=== PATIENT | female | born 1985 | race Caucasian/White ===

== ENCOUNTER 2016-10-29 13:44 | Emergency (ER) | payer OTHER ==
[~2016-10-29] VITALS: Ht 157.5 cm; Wt 72.5 kg
[~2016-10-29 13:44] MED LIST: BENTYL10 MG PO; BENTYL20 MG PO; BUPROPION XL150 MG PO; CELEBREX100 MG PO; CIPRO500 MG PO; DICLOFENAC SODI75 MG PO; DOXYCYCLINE HY100 MG PO; ENDOCET 5-3251 EACH PO; FLEXERIL10 MG PO; GLUCOPHAGE500 MG PO; KETOROLAC TROME10 MG PO; MACROBID100 MG PO; MOTRIN600 MG PO; MOTRIN800 MG PO; NAPROSYN500 MG PO; NOHOMEMEDS; PAROXETINE HCL10 MG PO; PERCOCET 5/31 TABLET PO; PRILOSEC40 MG PO; RELAFEN500 M1 PO; TOBRASOL5 ML LEFT EYE; TRAMADOL HCL50 MG PO; ULTRAM50 MG PO; VIBRAMYCIN100 MG PO; ZOFRAN ODT4 MG PO; ZOFRAN4 MG PO; ZYVOX600 MG PO
[2016-10-29 14:12] LABS: HEMATOCRIT 44.8 % (36.0-46.0); MCH 29.4 PG (29.0-34.0); MCV 89.1 FL (83-99); MEAN PLAT.VOLUME 9.6 uM^3 (9.5-12.4); PLATELET COUNT 305 K/uL (156-360); RBC DIS.WIDTH-CV 13.1 % (11.8-14.6); RBC DIS.WIDTH-SD 41.9 % (39-53); RED BLOOD COUNT 5.03 M/uL (3.80-5.20); WHITE BLOOD COUNT 10.3 K/uL (4.1-10.2)
[2016-10-29 14:22] LABS: CHLORIDE 109 mEq/L (99-109); POTASSIUM 4.2 mEq/L (3.7-5.4); SODIUM 142 mEq/L (136-147)
[2016-10-29 14:24] LABS: GLUCOSE 217 mg/dL (70-99)
[2016-10-29 14:26] LABS: ANION GAP 10 MEQ/L (2-14); TOTAL BILIRUBIN 0.3 mg/dL (0.0-1.0)
[2016-10-29 14:28] LABS: ALKALINE PHOSPHATASE 75 IU/L (3-129); GFR ESTIMATE (CALCULATED) > 59 mL/min/
[2016-10-29 14:29] LABS: UREA NITROGEN (BUN) 12 mg/dL (9-23)
[2016-10-29 14:36] LABS: QUANTITATIVE HCG < 4.0 MIU/ML
[2016-10-29] MEDS ORDERED: GABAPENTIN300 MG PO (15:32)
[2016-10-29] MEDS ORDERED: HYDROCODON-ACE1 EAC8 PO (15:33)
[2016-10-29 15:40] LABS: ADD MIUA? NO; BILIRUBIN NEGATIVE; BLOOD NEGATIVE; COLOR YELLOW ((YELLOW)); GLUCOSE (STRIP) >=1000; KETONES NEGATIVE; LEUKOCYTES NEGATIVE; NITRITE NEGATIVE; PROTEIN (STRIP) NEGATIVE; UCUL ADDED? NO; UROBILINOGEN 0.2 MG/DL (0.2-1.0)
[2016-10-29] MEDS ORDERED: INDOCIN25 MG PO (20:57)
[2016-10-29] MEDS ORDERED: ZOFRAN ODT4 MG PO (21:01)
[2016-10-29 21:09] VITALS: BP 112/79
[2016-10-30 13:27] LABS: CHLAMYDIA TRACHOMATIS NEGATIVE; NEISSERIA GONORRHOEAE NEGATIVE
== END 2016-10-29 21:13 | disposition home or self-care (01) ==
LOC: EME 13:44 → RME 13:44
PROVIDERS: Physician Assistant
DX: R10.2 Pelvic and perineal pain (principal); E11.65 Type 2 diabetes mellitus with hyperglycemia; G89.29 Other chronic pain; Z87.442 Personal history of urinary calculi; Z86.14 Personal history of Methicillin resistant Staphylococcus aureus infection; F17.200 Nicotine dependence, unspecified, uncomplicated
CPT/HCPCS: 74177; 76856; 80053; 81003; 84702; 85027; 87210; 87491; 87591; 99281; 99285; J0696; J1885; J2405; J3010; J7030

== ENCOUNTER 2017-04-10 20:04 | Emergency (ER) | payer OTHER ==
[~2017-04-10] VITALS: Ht 157.5 cm; Wt 72.3 kg
[~2017-04-10 20:04] MED LIST changes: +GABAPENTIN300 MG PO; +HYDROCODON-ACE1 EAC8 PO; +INDOCIN25 MG PO
[2017-04-10 20:57] LABS: HEMATOCRIT 43.1 % (36.0-46.0); MCH 27.5 PG (29.0-34.0); PLATELET COUNT 264 K/uL (156-360); RBC DIS.WIDTH-CV 14.1 % (11.8-14.6); RBC DIS.WIDTH-SD 44.8 % (39-53); RED BLOOD COUNT 5.01 M/uL (3.80-5.20); WHITE BLOOD COUNT 10.8 K/uL (4.1-10.2)
[2017-04-10 21:06] LABS: CHLORIDE 108 mEq/L (99-109); POTASSIUM 4.2 mEq/L (3.7-5.4); SODIUM 140 mEq/L (136-147)
[2017-04-10 21:08] LABS: GLUCOSE 167 mg/dL (70-99)
[2017-04-10 21:09] LABS: ANION GAP 8 MEQ/L (2-14)
[2017-04-10 21:12] LABS: GFR ESTIMATE (CALCULATED) > 59 mL/min/
[2017-04-10 21:13] LABS: UREA NITROGEN (BUN) 9 mg/dL (9-23)
[2017-04-10 21:47] LABS: QUANTITATIVE HCG < 4.0 MIU/ML
[2017-04-10 22:10] LABS: ADD MIUA? NO; BILIRUBIN NEGATIVE; BLOOD NEGATIVE; COLOR YELLOW ((YELLOW)); GLUCOSE (STRIP) NEGATIVE; KETONES NEGATIVE; LEUKOCYTES NEGATIVE; NITRITE NEGATIVE; PROTEIN (STRIP) NEGATIVE; UCUL ADDED? NO; UROBILINOGEN 0.2 MG/DL (0.2-1.0)
[2017-04-10] MEDS ORDERED: PERCOCET 5/31 TABLET PO (22:44)
[2017-04-10] MEDS ORDERED: ZOFRAN ODT4 MG PO (22:44)
[2017-04-10] MEDS ORDERED: MOTRIN600 MG PO (22:44)
[2017-04-10 22:53] VITALS: BP 124/70
== END 2017-04-10 22:55 | disposition home or self-care (01) ==
LOC: EME 20:04
DX: R10.9 Unspecified abdominal pain (principal); R11.0 Nausea; R68.83 Chills (without fever); Z87.442 Personal history of urinary calculi; F17.200 Nicotine dependence, unspecified, uncomplicated
CPT/HCPCS: 74176; 80048; 81003; 84702; 85027; 99281; 99285; J1200; J1885; J2270; J2405; J7030

== ENCOUNTER 2017-04-30 15:22 | Emergency (ER) | payer OTHER ==
[~2017-04-30] VITALS: Ht 157.5 cm; Wt 72.7 kg
[2017-04-30 15:59] LABS: ADD MIUA? NO; BILIRUBIN NEGATIVE; BLOOD NEGATIVE; COLOR STRAW ((YELLOW)); GLUCOSE (STRIP) NEGATIVE; KETONES NEGATIVE; LEUKOCYTES NEGATIVE; NITRITE NEGATIVE; PROTEIN (STRIP) NEGATIVE; UCUL ADDED? NO; UROBILINOGEN 0.2 MG/DL (0.2-1.0)
[2017-04-30 16:07] LABS: HEMATOCRIT 42.3 % (36.0-46.0); MCH 27.6 PG (29.0-34.0); MCHC 31.9 G/DL (30.0-36.0); MCV 86.3 FL (83-99); PLATELET COUNT 279 K/uL (156-360); RBC DIS.WIDTH-CV 13.9 % (11.8-14.6); WHITE BLOOD COUNT 14.2 K/uL (4.1-10.2)
[2017-04-30 16:17] LABS: CHLORIDE 106 mEq/L (99-109); SODIUM 142 mEq/L (136-147)
[2017-04-30 16:19] LABS: GLUCOSE 114 mg/dL (70-99)
[2017-04-30 16:21] LABS: ANION GAP 10 MEQ/L (2-14); TOTAL BILIRUBIN 0.3 mg/dL (0.0-1.0)
[2017-04-30 16:23] LABS: ALKALINE PHOSPHATASE 103 IU/L (3-129); GFR ESTIMATE (CALCULATED) > 59 mL/min/
[2017-04-30 16:24] LABS: UREA NITROGEN (BUN) 7 mg/dL (9-23)
[2017-04-30 16:26] LABS: LIPASE 15 U/L (1.0-51.0)
[2017-04-30 17:12] LABS: QUANTITATIVE HCG < 4.0 MIU/ML
[2017-04-30] MEDS ORDERED: NORCO 5/3251 TABLET PO (18:32)
[2017-04-30] MEDS ORDERED: BENTYL20 MG PO (18:32)
[2017-04-30 18:43] VITALS: BP 136/98
== END 2017-04-30 18:44 | disposition home or self-care (01) ==
LOC: EME 15:22
DX: R10.31 Right lower quadrant pain (principal); J02.9 Acute pharyngitis, unspecified; R11.0 Nausea; Z87.442 Personal history of urinary calculi; Z98.51 Tubal ligation status; Z86.14 Personal history of Methicillin resistant Staphylococcus aureus infection; F17.200 Nicotine dependence, unspecified, uncomplicated
CPT/HCPCS: 74177; 80053; 81003; 83690; 84702; 85027; 99281; 99284; J2270; J2405; J7040

== ENCOUNTER 2017-08-29 12:53 | Emergency (ER) | payer OTHER ==
[~2017-08-29] VITALS: Ht 157.5 cm; Wt 73.0 kg
[~2017-08-29 12:53] MED LIST changes: +NORCO 5/3251 TABLET PO
[2017-08-29 13:39] LABS: HEMATOCRIT 41.3 % (36.0-46.0); MCH 27.1 PG (29.0-34.0); MCHC 32.2 G/DL (30.0-36.0); MCV 84.1 FL (83-99); MEAN PLAT.VOLUME 9.8 uM^3 (9.5-12.4); PLATELET COUNT 286 K/uL (156-360); RBC DIS.WIDTH-CV 14.9 % (11.8-14.6); RBC DIS.WIDTH-SD 45.9 % (39-53); RED BLOOD COUNT 4.91 M/uL (3.80-5.20)
[2017-08-29 13:50] LABS: CHLORIDE 107 mEq/L (99-109); POTASSIUM 4.3 mEq/L (3.7-5.4); SODIUM 136 mEq/L (136-147)
[2017-08-29 13:53] LABS: GLUCOSE 259 mg/dL (70-99)
[2017-08-29 13:54] LABS: ANION GAP 9 MEQ/L (2-14)
[2017-08-29 13:55] LABS: TOTAL BILIRUBIN 0.2 mg/dL (0.0-1.0)
[2017-08-29 13:56] LABS: ALKALINE PHOSPHATASE 94 IU/L (3-129); GFR ESTIMATE (CALCULATED) > 59 mL/min/
[2017-08-29 13:58] LABS: UREA NITROGEN (BUN) 11 mg/dL (9-23)
[2017-08-29 14:00] LABS: LIPASE 30 U/L (1.0-51.0)
[2017-08-29 14:06] LABS: QUANTITATIVE HCG < 4.0 MIU/ML
[2017-08-29 14:57] LABS: ADD MIUA? YES; BILIRUBIN NEGATIVE; BLOOD NEGATIVE; COLOR YELLOW ((YELLOW)); GLUCOSE (STRIP) >=500; KETONES NEGATIVE; LEUKOCYTES MODERATE; NITRITE NEGATIVE; PROTEIN (STRIP) NEGATIVE; SPECIFIC GRAVITY 1.042 (1.000-1.030); UROBILINOGEN 0.2 MG/DL (0.2-1.0)
[2017-08-29 15:10] LABS: BACTERIA NONE SEEN /HPF; EPITHELIAL CELLS RARE /HPF; MUCUS TRACE /LPF; RED BLOOD CELLS 0-5 /HPF (0-5)
[2017-08-29] MEDS ORDERED: ZOFRAN ODT4 MG PO (15:27)
[2017-08-29] MEDS ORDERED: BENTYL10 MG PO (15:27)
[2017-08-29 15:35] VITALS: BP 133/84
== END 2017-08-29 15:50 | disposition home or self-care (01) ==
LOC: EME 12:53
PROVIDERS: Nurse Practitioner Family
DX: R10.11 Right upper quadrant pain (principal); R10.13 Epigastric pain; R19.7 Diarrhea, unspecified; R07.89 Other chest pain; F17.200 Nicotine dependence, unspecified, uncomplicated; E11.9 Type 2 diabetes mellitus without complications; F32.9 Major depressive disorder, single episode, unspecified; F41.9 Anxiety disorder, unspecified; Z86.19 Personal history of other infectious and parasitic diseases; Z87.442 Personal history of urinary calculi; Z86.14 Personal history of Methicillin resistant Staphylococcus aureus infection; Z88.1 Allergy status to other antibiotic agents; Z88.2 Allergy status to sulfonamides
CPT/HCPCS: 71020; 74177; 80053; 81003; 83690; 84702; 85027; 99281; 99285; J1885; J2405; J3010; J7030

== ENCOUNTER 2017-11-18 23:51 | Emergency (ER) | payer OTHER ==
[~2017-11-18] VITALS: Ht 157.5 cm; Wt 74.2 kg
[2017-11-19 00:22] LABS: APPEARANCE SL.HAZY ((CLEAR)); BILIRUBIN NEGATIVE; BLOOD NEGATIVE; COLOR YELLOW ((YELLOW)); GLUCOSE (STRIP) 50; KETONES 5; LEUKOCYTES TRACE; NITRITE NEGATIVE; PROTEIN (STRIP) NEGATIVE; SPECIFIC GRAVITY 1.028 (1.000-1.030); UROBILINOGEN 0.2 MG/DL (0.2-1.0)
[2017-11-19 00:26] LABS: BACTERIA NONE SEEN /HPF; EPITHELIAL CELLS 1+ /HPF; MUCUS TRACE /LPF; RED BLOOD CELLS 0-5 /HPF (0-5); UCUL ADDED? NO; WHITE BLOOD CELLS 0-5 /HPF (0-5)
[2017-11-19 01:08] LABS: HEMATOCRIT 39.3 % (36.0-46.0); HEMOGLOBIN 12.6 G/DL (11.9-15.5); MCH 26.9 PG (29.0-34.0); MCHC 32.1 G/DL (30.0-36.0); MCV 83.8 FL (83-99); PLATELET COUNT 289 K/uL (156-360); RBC DIS.WIDTH-CV 15.2 % (11.8-14.6); RBC DIS.WIDTH-SD 45.7 % (39-53); RED BLOOD COUNT 4.69 M/uL (3.80-5.20); WHITE BLOOD COUNT 12.6 K/uL (4.1-10.2)
[2017-11-19 01:21] LABS: ALBUMIN 4.1 g/dL (3.2-4.8)
[2017-11-19 01:22] LABS: CHLORIDE 109 mEq/L (99-109); POTASSIUM 4.3 mEq/L (3.7-5.4); SODIUM 138 mEq/L (136-147)
[2017-11-19 01:24] LABS: GLUCOSE 180 mg/dL (70-99); TOTAL PROTEIN 6.9 g/dL (6.4-8.3)
[2017-11-19 01:26] LABS: TOTAL BILIRUBIN 0.2 mg/dL (0.0-1.0)
[2017-11-19 01:27] LABS: ALKALINE PHOSPHATASE 93 IU/L (3-129)
[2017-11-19 01:28] LABS: CREATININE 0.9 mg/dL (0.6-1.3); GFR ESTIMATE (CALCULATED) > 59 mL/min/
[2017-11-19 01:29] LABS: AST (GOT) 13 IU/L (2-34); UREA NITROGEN (BUN) 13 mg/dL (9-23)
[2017-11-19 01:31] LABS: ALT (GPT) 10 IU/L (3-49)
[2017-11-19 01:37] LABS: QUANTITATIVE HCG < 4.0 MIU/ML
[2017-11-19] MEDS ORDERED: FLAGYL500 MG PO (04:10)
[2017-11-19] MEDS ORDERED: DOXYCYCLINE HY100 MG PO (05:55)
[2017-11-19 06:06] VITALS: BP 149/70
== END 2017-11-19 06:07 | disposition home or self-care (01) ==
LOC: EME 23:51
DX: R10.11 Right upper quadrant pain (principal); R30.0 Dysuria; M54.9 Dorsalgia, unspecified; Z87.442 Personal history of urinary calculi; E11.9 Type 2 diabetes mellitus without complications; Z88.1 Allergy status to other antibiotic agents; Z88.2 Allergy status to sulfonamides; F17.200 Nicotine dependence, unspecified, uncomplicated
CPT/HCPCS: 76705; 80053; 81003; 84702; 85027; 99281; 99283; J1885; J2765

== ENCOUNTER 2017-12-06 21:08 | Emergency (ER) | payer OTHER ==
[~2017-12-06] VITALS: Ht 157.5 cm; Wt 74.5 kg
[~2017-12-06 21:08] MED LIST changes: +FLAGYL500 MG PO
[2017-12-06 21:28] LABS: HEMATOCRIT 40.3 % (36.0-46.0); HEMOGLOBIN 12.9 G/DL (11.9-15.5); MCH 26.7 PG (29.0-34.0); MCV 83.4 FL (83-99); RBC DIS.WIDTH-CV 14.8 % (11.8-14.6); RBC DIS.WIDTH-SD 45.1 % (39-53); RED BLOOD COUNT 4.83 M/uL (3.80-5.20); WHITE BLOOD COUNT 14.1 K/uL (4.1-10.2)
[2017-12-06 21:30] LABS: PLATELET COUNT 387 K/uL (156-360)
[2017-12-06 21:38] LABS: CHLORIDE 104 mEq/L (99-109); POTASSIUM 3.8 mEq/L (3.7-5.4); SODIUM 138 mEq/L (136-147)
[2017-12-06 21:40] LABS: GLUCOSE 233 mg/dL (70-99)
[2017-12-06 21:44] LABS: CREATININE 0.8 mg/dL (0.6-1.3); GFR ESTIMATE (CALCULATED) > 59 mL/min/
[2017-12-06 21:45] LABS: UREA NITROGEN (BUN) 13 mg/dL (9-23)
[2017-12-06 21:50] LABS: TROP-I INTERPRETATION NEGATIVE; TROPONIN-I < 0.01 ng/mL (0.0-0.30)
[2017-12-06 22:47] LABS: ALBUMIN 4.2 g/dL (3.2-4.8)
[2017-12-06 22:49] LABS: TOTAL PROTEIN 7.5 g/dL (6.4-8.3)
[2017-12-06 22:51] LABS: TOTAL BILIRUBIN 0.1 mg/dL (0.0-1.0)
[2017-12-06 22:52] LABS: ALKALINE PHOSPHATASE 104 IU/L (3-129)
[2017-12-06 22:55] LABS: ALT (GPT) 14 IU/L (3-49); AST (GOT) 15 IU/L (2-34)
[2017-12-06 22:56] LABS: LIPASE 26 U/L (1.0-51.0)
[2017-12-07 00:13] LABS: D-DIMER ELISA < 150.00 ng/mLDDU (<230)
[2017-12-07 01:18] LABS: TROP-I INTERPRETATION NEGATIVE; TROPONIN-I < 0.01 ng/mL (0.0-0.30)
[2017-12-07] MEDS ORDERED: TYLENOL WITH C1 EACH PO (03:59)
[2017-12-07] MEDS ORDERED: ZITHROMAX250 MG PO (04:42)
[2017-12-07 04:49] VITALS: BP 120/82
== END 2017-12-07 04:54 | disposition home or self-care (01) ==
LOC: EME 21:08
PROVIDERS: Emergency Medicine
DX: R10.11 Right upper quadrant pain (principal); R07.9 Chest pain, unspecified; J98.4 Other disorders of lung; N83.291 Other ovarian cyst, right side; Z87.442 Personal history of urinary calculi; E11.9 Type 2 diabetes mellitus without complications; F41.9 Anxiety disorder, unspecified; F32.9 Major depressive disorder, single episode, unspecified; F17.200 Nicotine dependence, unspecified, uncomplicated; G51.0 Bell's palsy; K76.0 Fatty (change of) liver, not elsewhere classified; Z86.14 Personal history of Methicillin resistant Staphylococcus aureus infection; Z98.51 Tubal ligation status; Z88.2 Allergy status to sulfonamides; Z88.1 Allergy status to other antibiotic agents
CPT/HCPCS: 71046; 74177; 80048; 80076; 83690; 84484; 85027; 85379; 93005; 99281; 99285; J2405; J3010; J7030

== ENCOUNTER → 2017-12-29 | Outpatient (CLI) | payer OTHER ==
[~2017-12-29] VITALS: Ht 157.5 cm; Wt 72.6 kg
[~2017-12-29] MED LIST changes: +TYLENOL WITH C1 EACH PO; +ZITHROMAX250 MG PO
== END | disposition home or self-care (01) ==
LOC: AMB 07:51
PROVIDERS: Internal Medicine Gastroenterology
PROC: 0DD78ZX Extraction of Stomach, Pylorus, Via Natural or Artificial Opening Endoscopic, Diagnostic (ICD-10-PCS; principal; 2017-12-29)
DX: R10.11 Right upper quadrant pain (principal); Q45.3 Other congenital malformations of pancreas and pancreatic duct; K76.0 Fatty (change of) liver, not elsewhere classified; K29.50 Unspecified chronic gastritis without bleeding
CPT/HCPCS: 82948; 88305; 88342 TC

== ENCOUNTER 2018-01-10 14:29 | Emergency (ER) | payer OTHER ==
[~2018-01-10] VITALS: Ht 157.5 cm; Wt 73.7 kg
[2018-01-10 15:40] LABS: HEMATOCRIT 42.7 % (36.0-46.0); HEMOGLOBIN 13.6 G/DL (11.9-15.5); MCH 26.1 PG (29.0-34.0); MCHC 31.9 G/DL (30.0-36.0); PLATELET COUNT 317 K/uL (156-360); RBC DIS.WIDTH-CV 15.1 % (11.8-14.6); RBC DIS.WIDTH-SD 45.3 % (39-53); RED BLOOD COUNT 5.21 M/uL (3.80-5.20); WHITE BLOOD COUNT 10.9 K/uL (4.1-10.2)
[2018-01-10 15:49] LABS: CHLORIDE 106 mEq/L (99-109); POTASSIUM 4.3 mEq/L (3.7-5.4); SODIUM 141 mEq/L (136-147)
[2018-01-10 15:51] LABS: GLUCOSE 129 mg/dL (70-99)
[2018-01-10 15:55] LABS: CREATININE 0.9 mg/dL (0.6-1.3); GFR ESTIMATE (CALCULATED) > 59 mL/min/
[2018-01-10 15:56] LABS: UREA NITROGEN (BUN) 13 mg/dL (9-23)
[2018-01-10 16:05] LABS: QUANTITATIVE HCG < 4.0 MIU/ML
[2018-01-10 16:12] LABS: APPEARANCE SL.HAZY ((CLEAR)); BILIRUBIN NEGATIVE; BLOOD NEGATIVE; COLOR YELLOW ((YELLOW)); GLUCOSE (STRIP) NEGATIVE; KETONES NEGATIVE; LEUKOCYTES MODERATE; NITRITE NEGATIVE; PROTEIN (STRIP) NEGATIVE; SPECIFIC GRAVITY 1.014 (1.000-1.030); UROBILINOGEN 0.2 MG/DL (0.2-1.0)
[2018-01-10 16:27] LABS: BACTERIA RARE /HPF; EPITHELIAL CELLS 2+ /HPF; MUCUS TRACE /LPF; RED BLOOD CELLS 0-5 /HPF (0-5); UCUL ADDED? NO; WHITE BLOOD CELLS 0-5 /HPF (0-5)
[2018-01-10] MEDS ORDERED: CIPRO500 MG PO (18:08)
[2018-01-10] MEDS ORDERED: PERCOCET 5/31 TABLET PO (18:08)
[2018-01-10] MEDS ORDERED: PYRIDIUM200 MG PO (18:08)
[2018-01-10 18:37] VITALS: BP 126/92
== END 2018-01-10 18:41 | disposition home or self-care (01) ==
LOC: EME 14:29
DX: N39.0 Urinary tract infection, site not specified (principal); Z87.442 Personal history of urinary calculi; F41.9 Anxiety disorder, unspecified; F32.9 Major depressive disorder, single episode, unspecified; E11.9 Type 2 diabetes mellitus without complications; F17.200 Nicotine dependence, unspecified, uncomplicated; Z88.1 Allergy status to other antibiotic agents; Z88.2 Allergy status to sulfonamides; Z86.14 Personal history of Methicillin resistant Staphylococcus aureus infection; Z98.51 Tubal ligation status
CPT/HCPCS: 76770; 80048; 81003; 84702; 85027; 99281; 99285

== ENCOUNTER 2018-02-02 09:20 | Day surgery (SDC) | payer OTHER ==
[~2018-02-02] VITALS: Ht 157.5 cm; Wt 74.4 kg
[~2018-02-02 09:20] MED LIST changes: +PYRIDIUM200 MG PO
[2018-02-02 09:48] VITALS: BP 128/73
[2018-02-02 10:09] VITALS: BP 128/73
[2018-02-02] MEDS ORDERED: DILAUDID4 MG PO (11:54)
[2018-02-02] MEDS ORDERED: ONDANSETRON HCL8 MG PO (11:54)
[2018-02-02] MEDS ORDERED: COLACE100 MG PO (11:54)
[2018-02-02 14:40] VITALS: BP 119/61
[2018-02-02 16:22] VITALS: BP 106/55
== END 2018-02-02 16:43 | disposition home or self-care (01) ==
LOC: SDC 09:20
PROVIDERS: Surgery
PROC: 0FT44ZZ Resection of Gallbladder, Percutaneous Endoscopic Approach (ICD-10-PCS; principal; 2018-02-02)
DX: K81.1 Chronic cholecystitis (principal); E11.9 Type 2 diabetes mellitus without complications; F41.9 Anxiety disorder, unspecified
CPT/HCPCS: 82948; 87641; 88304; J0131; J0744; J1100; J1170; J1885; J2250; J2405; J2710; J3010; J7120; J7643; Q0175; S0030

== ENCOUNTER 2018-04-27 12:46 | Emergency (ER) | payer OTHER ==
[~2018-04-27] VITALS: Ht 157.5 cm; Wt 73.5 kg
[~2018-04-27 12:46] MED LIST changes: +COLACE100 MG PO; +DILAUDID4 MG PO; +ONDANSETRON HCL8 MG PO
[2018-04-27 13:28] LABS: APPEARANCE CLEAR ((CLEAR)); BILIRUBIN NEGATIVE; BLOOD NEGATIVE; COLOR YELLOW ((YELLOW)); GLUCOSE (STRIP) NEGATIVE; KETONES 5; LEUKOCYTES NEGATIVE; NITRITE NEGATIVE; PROTEIN (STRIP) NEGATIVE; SPECIFIC GRAVITY 1.018 (1.000-1.030); UCUL ADDED? NO; UROBILINOGEN 0.2 MG/DL (0.2-1.0)
[2018-04-27 13:38] LABS: HEMATOCRIT 42.2 % (36.0-46.0); HEMOGLOBIN 13.5 G/DL (11.9-15.5); MCH 26.3 PG (29.0-34.0); MCV 82.1 FL (83-99); PLATELET COUNT 345 K/uL (156-360); RBC DIS.WIDTH-CV 16.1 % (11.8-14.6); RBC DIS.WIDTH-SD 48.4 % (39-53); RED BLOOD COUNT 5.14 M/uL (3.80-5.20); WHITE BLOOD COUNT 10.6 K/uL (4.1-10.2)
[2018-04-27 13:49] LABS: CHLORIDE 106 mEq/L (99-109); POTASSIUM 4.2 mEq/L (3.7-5.4); SODIUM 141 mEq/L (136-147)
[2018-04-27 13:51] LABS: GLUCOSE 222 mg/dL (70-99)
[2018-04-27 13:55] LABS: CREATININE 0.9 mg/dL (0.6-1.3); GFR ESTIMATE (CALCULATED) > 59 mL/min/
[2018-04-27 13:56] LABS: UREA NITROGEN (BUN) 9 mg/dL (9-23)
[2018-04-27 14:37] LABS: QUANTITATIVE HCG < 4.0 MIU/ML
[2018-04-27] MEDS ORDERED: MOTRIN800 MG PO (16:14)
[2018-04-27 16:21] VITALS: BP 135/90
== END 2018-04-27 16:23 | disposition home or self-care (01) ==
LOC: EME 12:46
DX: R10.9 Unspecified abdominal pain (principal); Z87.442 Personal history of urinary calculi; E11.9 Type 2 diabetes mellitus without complications; F32.9 Major depressive disorder, single episode, unspecified; F41.9 Anxiety disorder, unspecified; F17.200 Nicotine dependence, unspecified, uncomplicated; Z86.14 Personal history of Methicillin resistant Staphylococcus aureus infection; Z98.51 Tubal ligation status; Z88.1 Allergy status to other antibiotic agents; Z88.2 Allergy status to sulfonamides
CPT/HCPCS: 74176; 80048; 81003; 84702; 85027; 99281; 99284; J1885

== ENCOUNTER 2018-05-15 05:12 | Emergency (ER) | payer OTHER ==
[~2018-05-15] VITALS: Ht 157.5 cm; Wt 73.6 kg
[2018-05-15 05:17] VITALS: BP 142/91
[2018-05-15] MEDS ORDERED: PERCOCET 5/31 TABLET PO (05:38)
[2018-05-15] MEDS ORDERED: FLEXERIL10 MG PO (05:38)
== END 2018-05-15 06:06 | disposition home or self-care (01) ==
LOC: EME 05:12
DX: M54.5 Low back pain (principal); M79.604 Pain in right leg; G89.29 Other chronic pain; Z88.1 Allergy status to other antibiotic agents; Z88.2 Allergy status to sulfonamides; F17.200 Nicotine dependence, unspecified, uncomplicated
CPT/HCPCS: 99281; 99283